=== PATIENT | female | born 1970 | race Caucasian/White ===

== ENCOUNTER 2019-04-19 10:33 | Emergency (ER) | payer MEDICAID ==
[~2019-04-19] VITALS: Ht 157.5 cm; Wt 62.8 kg
[~2019-04-19 10:33] MED LIST: ONDA4TAB6 PO; PRAZ5CAP PO
[2019-04-19] MEDS ORDERED: ondansetron 4mg rapidly disintigrating tab PO ONE (11:25)
[2019-04-19] MEDS ORDERED: ketorolac tromethamine 15mg/ml inj. IM ONE (11:25)
[2019-04-19 11:49] LABS: BASOPHILS % (AUTO) 0.4 % (0-1); EOSINOPHILS # (AUTO) 0.1 X10'3 (0-0.9); EOSINOPHILS % (AUTO) 0.8 % (0-6); HEMATOCRIT 45.7 % (35.0-45.0); HEMOGLOBIN 15.4 g/dl (12.0-16.0); LYMPHOCYTES # (AUTO) 4.2 X10'3 (1.1-4.8); LYMPHOCYTES % (AUTO) 42.5 % (21-51); MEAN CORPUSCULAR HGB CONC 33.6 g/dL (33.0-36.5); MEAN CORPUSCULAR VOLUME 92.1 FL (78-98); MEAN PLATELET VOLUME 7.8 FL (7.4-10.4); MONOCYTES # (AUTO) 0.6 X10'3 (0-0.9); NEUTROPHILS % (AUTO) 50.3 % (42-75); PLATELET COUNT 322 X10'3 (140-440); RED BLOOD COUNT 4.96 X10'6 (4.20-5.60); RED CELL DISTRIBUTION WIDTH 13.9 % (11.5-14.5); WHITE BLOOD COUNT 9.9 X10'3 (4.5-11.0)
[2019-04-19] MEDS ORDERED: gabapentin 400mg capsule PO STA (11:52)
[2019-04-19] MEDS ORDERED: gabapentin 300mg capsule PO ONE (11:55)
[2019-04-19 12:02] LABS: ALANINE AMINOTRANSFERASE 29 U/L (12-78); ALBUMIN 4.3 G/DL (3.4-5.0); ALKALINE PHOSPHATASE 81 IU/L (46-116); ANION GAP 11 (8-16); ASPARTATE AMINO TRANSFERASE 19 U/L (10-37); BILIRUBIN,TOTAL 0.6 MG/DL (0.1-1.0); BLOOD UREA NITROGEN 12 MG/DL (7-18); CALCIUM 9.6 MG/DL (8.5-10.1); CHLORIDE 98 MMOL/L (99-107); CREATININE 0.75 MG/DL (0.40-0.90); GLUCOSE 256 MG/DL (70-104); POTASSIUM 4.1 MMOL/L (3.5-5.1); SODIUM 133 MMOL/L (135-145); TOTAL CARBON DIOXIDE 24.3 MMOL/L (24-32); TOTAL PROTEIN 8.4 G/DL (6.4-8.2); eGFR 82 ML/MIN
[2019-04-19] MEDS ORDERED: TRAZ-219 PO (12:12)
[2019-04-19 12:15] LABS: CLARITY,URINE CLEAR (Clear); COLOR,URINE STRAW (Yellow); GLUCOSE, URINE >=1000 mg/dl (Neg); KETONES,URINE NEGATIVE (Neg); LEUKOCYTE ESTERASE ,URINE NEGATIVE (Neg); NITRITES, URINE NEGATIVE (Neg); OCCULT BLOOD,URINE NEGATIVE (Neg); PROTEIN,URINE NEGATIVE (Neg); UROBILINOGEN,URINE 0.2 E.U/dL (0.2-1.0)
[2019-04-19 12:18] LABS: UA COLLECTION TYPE CLN CATCH MIDSTREAM
[2019-04-19 12:23] LABS: RBC,URINE NONE SEEN /HPF (0-2); WBC,URINE 0-4 /HPF (0-4)
[2019-04-19 12:24] LABS: BACTERIA,URINE NONE SEEN /HPF (Neg); MUCUS STRANDS NONE SEEN /LPF (Neg); SQUAMOUS EPITHELIAL CELL,UR FEW /LPF (FEW)
[2019-04-19 12:33] VITALS: BP 127/72
[2019-04-19] MEDS ORDERED: GABA-532 PO (12:35)
== END 2019-04-19 12:31 | disposition home or self-care (01) ==
LOC: ER 10:34
DX: G40.909 Epilepsy, unspecified, not intractable, without status epilepticus (principal); G43.909 Migraine, unspecified, not intractable, without status migrainosus; Z88.6 Allergy status to analgesic agent; Z88.2 Allergy status to sulfonamides; Z79.899 Other long term (current) drug therapy; Z98.51 Tubal ligation status; Z98.890 Other specified postprocedural states
CPT/HCPCS: 36415; 80053; 81001; 85025; 96372; 99284; J1885; J2405

== ENCOUNTER 2019-05-11 15:21 | Emergency (ER) | payer MEDICAID ==
[~2019-05-11] VITALS: Ht 157.5 cm; Wt 70.5 kg
[~2019-05-11 15:21] MED LIST changes: +GABA-532 PO; +TRAZ-219 PO
[2019-05-11] MEDS ORDERED: predniSONE 20 mg tablet PO ONE (15:55)
[2019-05-11] MEDS ORDERED: FLUT1DIS4 INH (15:55)
[2019-05-11] MEDS ORDERED: ALB0.5UD IH (15:55)
[2019-05-11] MEDS ORDERED: ipratropium/albuterol 3ml nebule NEB ONE (15:55)
[2019-05-11] MEDS ORDERED: PRED20TA PO (16:19)
--- NOTE | 2019-05-11 16:20 | NUR ---
RT AT BEDSIDE
[2019-05-11 16:53] VITALS: BP 100/61
== END 2019-05-11 17:00 | disposition home or self-care (01) ==
LOC: ER 15:22
DX: J45.901 Unspecified asthma with (acute) exacerbation (principal); J06.9 Acute upper respiratory infection, unspecified; Z88.5 Allergy status to narcotic agent; Z88.1 Allergy status to other antibiotic agents; Z79.899 Other long term (current) drug therapy; Z98.51 Tubal ligation status
CPT/HCPCS: 71046; 94640; 94760; 99283; J7512

== ENCOUNTER 2019-07-11 14:41 | Emergency (ER) | payer MEDICAID ==
[~2019-07-11] VITALS: Ht 167.6 cm; Wt 75.0 kg
[~2019-07-11 14:41] MED LIST changes: +FLUT1DIS4 INH
[2019-07-11 15:16] LABS: BASOPHILS # (AUTO) 0.1 X10'3 (0-0.2); BASOPHILS % (AUTO) 0.7 % (0-1); EOSINOPHILS # (AUTO) 0.1 X10'3 (0-0.9); EOSINOPHILS % (AUTO) 0.6 % (0-6); HEMATOCRIT 43.8 % (35.0-45.0); LYMPHOCYTES # (AUTO) 4.2 X10'3 (1.1-4.8); LYMPHOCYTES % (AUTO) 24.1 % (21-51); MEAN CORPUSCULAR HEMOGLOBIN 31.7 PG (27.0-31.0); MEAN CORPUSCULAR HGB CONC 34.3 g/dL (33.0-36.5); MEAN CORPUSCULAR VOLUME 92.6 FL (78-98); MEAN PLATELET VOLUME 8.8 FL (7.4-10.4); MONOCYTES # (AUTO) 0.9 X10'3 (0-0.9); MONOCYTES % (AUTO) 5.3 % (2-12); NEUTROPHILS # (AUTO) 11.9 X10'3 (1.8-7.7); NEUTROPHILS % (AUTO) 69.3 % (42-75); PLATELET COUNT 228 X10'3 (140-440); RED BLOOD COUNT 4.73 X10'6 (4.20-5.60); RED CELL DISTRIBUTION WIDTH 12.8 % (11.5-14.5); WHITE BLOOD COUNT 17.2 X10'3 (4.5-11.0)
--- NOTE | 2019-07-11 15:16 | NUR ---
pt came in complaining of lower abd pain for the past 5 days has gaurding to palpation denies being pregnet or having std's
[2019-07-11 15:23] LABS: CLARITY,URINE CLEAR (Clear); COLOR,URINE YELLOW (Yellow); GLUCOSE, URINE >=1000 mg/dl (Neg); KETONES,URINE NEGATIVE (Neg); LEUKOCYTE ESTERASE ,URINE NEGATIVE (Neg); NITRITES, URINE NEGATIVE (Neg); OCCULT BLOOD,URINE NEGATIVE (Neg); PROTEIN,URINE NEGATIVE (Neg); UROBILINOGEN,URINE 0.2 E.U/dL (0.2-1.0)
[2019-07-11 15:24] LABS: URINE HCG NEGATIVE (NEG)
[2019-07-11 15:29] LABS: ALANINE AMINOTRANSFERASE 44 U/L (12-78); ALBUMIN 3.6 G/DL (3.4-5.0); ALBUMIN/GLOBULIN RATIO 0.9 (1.1-1.5); ALKALINE PHOSPHATASE 89 IU/L (46-116); ANION GAP 6 (8-16); ASPARTATE AMINO TRANSFERASE 23 U/L (10-37); BILIRUBIN,TOTAL 0.2 MG/DL (0.1-1.0); BLOOD UREA NITROGEN 10 MG/DL (7-18); BUN/CREATININE RATIO 11.6 (6.6-38.0); CALCIUM 9.9 MG/DL (8.5-10.1); CHLORIDE 100 MMOL/L (99-107); CREATININE 0.86 MG/DL (0.40-0.90); GLUCOSE 277 MG/DL (70-104); SODIUM 136 MMOL/L (135-145); TOTAL CARBON DIOXIDE 29.7 MMOL/L (24-32); TOTAL PROTEIN 7.8 G/DL (6.4-8.2); eGFR 70 ML/MIN
[2019-07-11 15:37] LABS: UA COLLECTION TYPE VOIDED
[2019-07-11 15:40] LABS: BACTERIA,URINE FEW /HPF (Neg); MUCUS STRANDS NONE SEEN /LPF (Neg); RBC,URINE NONE SEEN /HPF (0-2); SQUAMOUS EPITHELIAL CELL,UR NONE SEEN /LPF (FEW); WBC,URINE 0-4 /HPF (0-4)
[2019-07-11] MEDS ORDERED: normal saline 1000ML IV soln IVB ONE (15:45)
[2019-07-11] MEDS ORDERED: CefTRIAXone 2gm/D5W 50ml 50 ML IV ONE (15:45)
--- NOTE | 2019-07-11 16:21 | NUR ---
SET UP FOR PELVIC EXAM. FEMALE ASSIST AT BEDSIDE WITH EXAM. PT TOLERATES WELL.
[2019-07-11] MEDS ORDERED: iohexol 300mg/ml 100ml inj. ONE (16:33)
[2019-07-11] MEDS ORDERED: BENZ-38 PO (18:04)
[2019-07-11] MEDS ORDERED: AMOX-422 PO (18:04)
[2019-07-11] MEDS ORDERED: PRED20TA PO (18:04)
[2019-07-11] MEDS ORDERED: ALBU6.7H9 INH (18:04)
[2019-07-11 18:13] VITALS: BP 158/96
== END 2019-07-11 18:14 | disposition home or self-care (01) ==
LOC: ER 14:42
DX: R10.30 Lower abdominal pain, unspecified (principal); J18.9 Pneumonia, unspecified organism; M54.5 Low back pain; Z98.51 Tubal ligation status; Z98.890 Other specified postprocedural states; Z86.69 Personal history of other diseases of the nervous system and sense organs; Z88.5 Allergy status to narcotic agent; Z88.2 Allergy status to sulfonamides; Z88.8 Allergy status to other drugs, medicaments and biological substances; Z79.899 Other long term (current) drug therapy
CPT/HCPCS: 36415; 71045; 74177; 80053; 81001; 81025; 83605; 84145; 85025; 85610; 87040; 96365; 99284; J0696; J7030; Q9967

== ENCOUNTER 2019-07-25 14:51 | Emergency (ER) | payer MEDICAID ==
[~2019-07-25] VITALS: Ht 160 cm; Wt 75.0 kg
[~2019-07-25 14:51] MED LIST changes: +ALBU6.7H9 INH; +BENZ-38 PO
[2019-07-25 15:23] LABS: BASOPHILS % (AUTO) 0.2 % (0-1); EOSINOPHILS # (AUTO) 0.1 X10'3 (0-0.9); EOSINOPHILS % (AUTO) 0.9 % (0-6); HEMATOCRIT 39.6 % (35.0-45.0); HEMOGLOBIN 13.5 g/dl (12.0-16.0); LYMPHOCYTES # (AUTO) 2.5 X10'3 (1.1-4.8); LYMPHOCYTES % (AUTO) 23.4 % (21-51); MEAN CORPUSCULAR HEMOGLOBIN 31.8 PG (27.0-31.0); MEAN CORPUSCULAR VOLUME 93.6 FL (78-98); MEAN PLATELET VOLUME 8.9 FL (7.4-10.4); MONOCYTES # (AUTO) 0.6 X10'3 (0-0.9); MONOCYTES % (AUTO) 5.5 % (2-12); NEUTROPHILS # (AUTO) 7.4 X10'3 (1.8-7.7); PLATELET COUNT 263 X10'3 (140-440); RED BLOOD COUNT 4.22 X10'6 (4.20-5.60); RED CELL DISTRIBUTION WIDTH 13.2 % (11.5-14.5); WHITE BLOOD COUNT 10.6 X10'3 (4.5-11.0)
[2019-07-25 15:40] LABS: ALANINE AMINOTRANSFERASE 51 U/L (12-78); ALBUMIN 3.5 G/DL (3.4-5.0); ALBUMIN/GLOBULIN RATIO 0.9 (1.1-1.5); ALKALINE PHOSPHATASE 99 IU/L (46-116); ANION GAP 9 (8-16); ASPARTATE AMINO TRANSFERASE 16 U/L (10-37); BILIRUBIN,TOTAL 0.3 MG/DL (0.1-1.0); BLOOD UREA NITROGEN 13 MG/DL (7-18); BUN/CREATININE RATIO 15.1 (6.6-38.0); CALCIUM 9.6 MG/DL (8.5-10.1); CHLORIDE 97 MMOL/L (99-107); CREATININE 0.86 MG/DL (0.40-0.90); GLUCOSE 443 MG/DL (70-104); SODIUM 136 MMOL/L (135-145); TOTAL CARBON DIOXIDE 30.1 MMOL/L (24-32); TOTAL PROTEIN 7.6 G/DL (6.4-8.2); eGFR 70 ML/MIN
[2019-07-25] MEDS ORDERED: dexamethasone sod phosphate 10mg/ml inj IM STA (15:47)
[2019-07-25] MEDS ORDERED: ipratropium/albuterol 3ml nebule NEB ONE (15:50)
[2019-07-25] MEDS ORDERED: IPRA3AMP31 IH (15:50)
[2019-07-25] MEDS ORDERED: ibuprofen tablet 400 MG TABLET PO ONE (15:50)
[2019-07-25 16:27] VITALS: BP 125/80
== END 2019-07-25 16:28 | disposition home or self-care (01) ==
LOC: ER 14:52
DX: J44.1 Chronic obstructive pulmonary disease with (acute) exacerbation (principal); J18.9 Pneumonia, unspecified organism; F17.210 Nicotine dependence, cigarettes, uncomplicated; Z86.69 Personal history of other diseases of the nervous system and sense organs; Z98.51 Tubal ligation status; Z71.6 Tobacco abuse counseling; Z98.890 Other specified postprocedural states; Z88.5 Allergy status to narcotic agent; Z88.2 Allergy status to sulfonamides; Z88.8 Allergy status to other drugs, medicaments and biological substances; Z79.899 Other long term (current) drug therapy
CPT/HCPCS: 36415; 71046; 80053; 83605; 85025; 87040; 94640; 96372; 99284; 99406; J1100

== ENCOUNTER 2019-08-08 08:44 | Emergency (ER) | payer MEDICAID ==
[~2019-08-08] VITALS: Ht 160 cm; Wt 73.6 kg
[~2019-08-08 08:44] MED LIST changes: +IPRA3AMP31 IH
[2019-08-08] MEDS ORDERED: proCHLORperazine 10 MG/2 ml inj IM ONE (09:05)
[2019-08-08 09:29] VITALS: BP 132/77
[2019-08-08] MEDS ORDERED: ketorolac trometh. 30mg/ml inj. IM ONE (10:00)
== END 2019-08-08 10:25 | disposition home or self-care (01) ==
LOC: ER 08:45
DX: R51 Headache (principal); R56.9 Unspecified convulsions; R11.0 Nausea; J44.9 Chronic obstructive pulmonary disease, unspecified; F17.200 Nicotine dependence, unspecified, uncomplicated; F12.90 Cannabis use, unspecified, uncomplicated; Z98.890 Other specified postprocedural states; Z98.51 Tubal ligation status; Z88.5 Allergy status to narcotic agent; Z88.2 Allergy status to sulfonamides; Z88.8 Allergy status to other drugs, medicaments and biological substances; Z79.899 Other long term (current) drug therapy
CPT/HCPCS: 96372; 99283; J0780; J1885

== ENCOUNTER 2019-08-10 13:29 | Emergency (ER) | payer MEDICAID ==
[~2019-08-10] VITALS: Ht 160 cm; Wt 73.7 kg
[2019-08-10] MEDS ORDERED: ipratropium/albuterol 3ml nebule NEB ONE (15:25)
[2019-08-10] MEDS ORDERED: CefTRIAXone 2gm/D5W 50ml 50 ML IV ONE (15:25)
[2019-08-10] MEDS ORDERED: normal saline 1000ML IV soln IV ONE (15:25)
[2019-08-10] MEDS ORDERED: methylPREDNISolone sod succ 125mg/2ml vial IV ONE (15:25)
[2019-08-10 15:54] LABS: BASOPHILS % (AUTO) 0.2 % (0-1); EOSINOPHILS # (AUTO) 0.1 X10'3 (0-0.9); EOSINOPHILS % (AUTO) 0.7 % (0-6); HEMATOCRIT 43.6 % (35.0-45.0); HEMOGLOBIN 14.9 g/dl (12.0-16.0); LYMPHOCYTES # (AUTO) 3.9 X10'3 (1.1-4.8); LYMPHOCYTES % (AUTO) 27.7 % (21-51); MEAN CORPUSCULAR HEMOGLOBIN 31.5 PG (27.0-31.0); MEAN CORPUSCULAR HGB CONC 34.2 g/dL (33.0-36.5); MEAN CORPUSCULAR VOLUME 92.3 FL (78-98); MEAN PLATELET VOLUME 8.8 FL (7.4-10.4); MONOCYTES # (AUTO) 0.8 X10'3 (0-0.9); MONOCYTES % (AUTO) 5.5 % (2-12); NEUTROPHILS # (AUTO) 9.4 X10'3 (1.8-7.7); NEUTROPHILS % (AUTO) 65.9 % (42-75); PLATELET COUNT 338 X10'3 (140-440); RED BLOOD COUNT 4.72 X10'6 (4.20-5.60); RED CELL DISTRIBUTION WIDTH 12.7 % (11.5-14.5); WHITE BLOOD COUNT 14.3 X10'3 (4.5-11.0)
--- NOTE | 2019-08-10 16:03 | NUR ---
WHEEZES CLEARING WITH STRONG COUGH: SPUTUM CLEAR/YELLOW
[2019-08-10 16:07] LABS: ALANINE AMINOTRANSFERASE 44 U/L (12-78); ALBUMIN/GLOBULIN RATIO 0.9 (1.1-1.5); ALKALINE PHOSPHATASE 103 IU/L (46-116); ANION GAP 6 (8-16); ASPARTATE AMINO TRANSFERASE 28 U/L (10-37); BILIRUBIN,TOTAL 0.3 MG/DL (0.1-1.0); BLOOD UREA NITROGEN 11 MG/DL (7-18); BUN/CREATININE RATIO 15.1 (6.6-38.0); CALCIUM 9.6 MG/DL (8.5-10.1); CHLORIDE 101 MMOL/L (99-107); CREATININE 0.73 MG/DL (0.40-0.90); GLUCOSE 209 MG/DL (70-104); POTASSIUM 3.8 MMOL/L (3.5-5.1); SODIUM 138 MMOL/L (135-145); TOTAL PROTEIN 8.3 G/DL (6.4-8.2); eGFR 84 ML/MIN
[2019-08-10] MEDS ORDERED: ALBU6.7H9 INH (16:23)
[2019-08-10] MEDS ORDERED: AMOX-419 PO (16:23)
[2019-08-10] MEDS ORDERED: GUAI120015 PO (16:23)
[2019-08-10] MEDS ORDERED: PRED20TA PO (16:23)
[2019-08-10 17:10] VITALS: BP 155/89
== END 2019-08-10 17:11 | disposition home or self-care (01) ==
LOC: ER 13:30
DX: J44.1 Chronic obstructive pulmonary disease with (acute) exacerbation (principal); F12.90 Cannabis use, unspecified, uncomplicated; Z98.51 Tubal ligation status; Z98.890 Other specified postprocedural states; Z79.899 Other long term (current) drug therapy; Z88.5 Allergy status to narcotic agent; Z88.1 Allergy status to other antibiotic agents
CPT/HCPCS: 36415; 71045; 80053; 83605; 84145; 85025; 87040; 93005; 94640; 94760; 96365; 96375; 99284; J0696; J2930; J7030; J7040